=== PATIENT | female | born 1995 | race Caucasian/White ===

== ENCOUNTER 2017-09-24 21:26 | Emergency (ER) | payer MEDICAID ==
[2017-09-24] MEDS: ACETAMINOPHEN 325 MG TAB PO (22:58)
[2017-09-24] MEDS: SOD CHLORIDE 0.9% 1,000 ML IV (22:59)
[2017-09-24 23:20] LABS: ADD MAN DIFF? NO
[2017-09-24 23:23] LABS: WHITE BLOOD COUNT 7.6 10^3/ul (4.8-10.8)
[2017-09-24 23:24] LABS: BASOPHILS % 0.1 % (0.0-2.0); EOSINOPHILS # 0.2 10^3/ul (0.0-0.5); HEMATOCRIT 35.3 % (37.0-47.0); HEMOGLOBIN 12.3 g/dl (12.0-16.0); LYMPHOCYTES # 2.4 10^3/ul (0.8-2.9); LYMPHOCYTES % 31.3 % (15.0-51.0); MEAN CORPUSCULAR HEMOGLOBIN 29.5 pg (29.0-33.0); MEAN CORPUSCULAR HGB CONC 34.8 g/dl (32.0-37.0); MEAN CORPUSCULAR VOLUME 84.7 fl (82.0-101.0); MEAN PLATELET VOLUME 11.1 fl (7.4-10.4); MONOCYTE # 0.7 10^3/ul (0.3-0.9); MONOCYTES % 8.6 % (0.0-11.0); NEUTROPHIL # 4.4 10^3/ul (1.6-7.5); NEUTROPHILS % 57.7 % (39.0-77.0); PLATELET COUNT 245 10^3/UL (140-415); RED BLOOD COUNT 4.17 10^6/ul (4.20-5.40); RED CELL DISTRIBUTION WIDTH 13.1 % (11.5-14.5)
[2017-09-24 23:40] LABS: ADD UMIC YES; UR ASCORBIC ACID NEGATIVE (NEGATIVE); UR BACTERIA FEW /HPF (NONE SEEN); UR BILIRUBIN (Dip) NEGATIVE (NEGATIVE); UR BLOOD (Dip) NEGATIVE (NEGATIVE); UR CALCIUM OXALATE CRYSTAL MANY /HPF (NONE SEEN); UR CLARITY CLOUDY (CLEAR); UR COLOR YELLOW (YELLOW); UR GLUCOSE (Dip) NEGATIVE (NEGATIVE); UR KETONES (Dip) NEGATIVE (NEGATIVE); UR LEUKOCYTE ESTERASE (Dip) 1+ Leu/ul (NEGATIVE); UR NITRITE (Dip) NEGATIVE (NEGATIVE); UR RBC 3 /HPF (0-5); UR SPECIFIC GRAVITY (Dip) 1.016 (1.003-1.030); UR SQUAMOUS EPITHELIAL CELL MODERATE /HPF (FEW); UR TOTAL PROTEIN (Dip) NEGATIVE (NEGATIVE); UR UROBILINOGEN (Dip) NEGATIVE (NEGATIVE); UR WBC 10 /HPF (0-5)
== END 2017-09-25 02:01 | disposition home or self-care (01) ==
LOC: FTE 09-25 02:01
DX: O23.42 Unspecified infection of urinary tract in pregnancy, second trimester (principal); O13.2 Gestational [pregnancy-induced] hypertension without significant proteinuria, second trimester; Z3A.15 15 weeks gestation of pregnancy
CPT/HCPCS: 36415; 76805; 81001; 84702; 85025; 86900; 86901; 99285-25

== ENCOUNTER 2017-11-21 07:20 | Inpatient (IN) | payer MEDICAID ==
[2017-11-21 08:05] LABS: ADD UMIC NO; UR ASCORBIC ACID NEGATIVE (NEGATIVE); UR BILIRUBIN (Dip) NEGATIVE (NEGATIVE); UR BLOOD (Dip) NEGATIVE (NEGATIVE); UR CLARITY SLIGHTLY CLOUDY (CLEAR); UR COLOR YELLOW (YELLOW); UR GLUCOSE (Dip) NEGATIVE (NEGATIVE); UR KETONES (Dip) NEGATIVE (NEGATIVE); UR LEUKOCYTE ESTERASE (Dip) NEGATIVE Leu/ul (NEGATIVE); UR MUCUS FEW /HPF (NONE SEEN); UR NITRITE (Dip) NEGATIVE (NEGATIVE); UR RBC 0 /HPF (0-5); UR SPECIFIC GRAVITY (Dip) 1.016 (1.003-1.030); UR SQUAMOUS EPITHELIAL CELL MODERATE /HPF (FEW); UR TOTAL PROTEIN (Dip) NEGATIVE (NEGATIVE); UR UROBILINOGEN (Dip) NEGATIVE (NEGATIVE); UR WBC 2 /HPF (0-5)
[2017-11-21] MEDS ORDERED: BUTORPHANOL 2 MG INJ IV (09:00)
[2017-11-21] MEDS: LACTATED RINGER'S 1,000 ML IV ×2 (09:47→17:39)
[2017-11-21 10:07] LABS: ADD MAN DIFF? NO
[2017-11-21 10:09] LABS: BASOPHILS % 0.2 % (0.0-2.0); EOSINOPHILS # 0.1 10^3/ul (0.0-0.5); EOSINOPHILS % 1.3 % (0.0-7.0); HEMATOCRIT 35.6 % (37.0-47.0); HEMOGLOBIN 11.9 g/dl (12.0-16.0); LYMPHOCYTES # 1.8 10^3/ul (0.8-2.9); LYMPHOCYTES % 20.2 % (15.0-51.0); MEAN CORPUSCULAR HEMOGLOBIN 29.1 pg (29.0-33.0); MEAN CORPUSCULAR HGB CONC 33.4 g/dl (32.0-37.0); MEAN PLATELET VOLUME 10.8 fl (7.4-10.4); MONOCYTE # 0.5 10^3/ul (0.3-0.9); MONOCYTES % 5.8 % (0.0-11.0); NEUTROPHIL # 6.3 10^3/ul (1.6-7.5); PLATELET COUNT 274 10^3/UL (140-415); RED BLOOD COUNT 4.09 10^6/ul (4.20-5.40); RED CELL DISTRIBUTION WIDTH 13.2 % (11.5-14.5)
[2017-11-21 10:09] LABS: WHITE BLOOD COUNT 8.7 10^3/ul (4.8-10.8)
[2017-11-21 10:38] LABS: ALANINE AMINOTRANSFERASE 17 IU/L (13-69); ALBUMIN 3.6 g/dl (3.3-4.9); ALKALINE PHOSPHATASE 84 IU/L (42-121); AMYLASE 71 U/L (11-123); ANION GAP 14 (8-16); ASPARTATE AMINO TRANSFERASE 23 IU/L (15-46); BILIRUBIN,INDIRECT 0.3 mg/dl (0-1.1); BILIRUBIN,TOTAL 0.3 mg/dl (0.2-1.3); BLOOD UREA NITROGEN 3 mg/dl (7-20); CALCIUM 8.7 mg/dl (8.4-10.2); CARBON DIOXIDE 20 mmol/L (21-31); CHLORIDE 112 mmol/L (97-110); CREATININE 0.37 mg/dl (0.44-1.00); GLUCOSE 78 mg/dl (70-220); LIPASE 87 U/L (23-300); POTASSIUM 3.9 mmol/L (3.5-5.1); SODIUM 142 mmol/L (135-144); TOTAL PROTEIN 7.6 g/dl (6.1-8.1)
[2017-11-22] MEDS: LACTATED RINGER'S 1,000 ML IV ×3 (03:04→11:28)
[2017-11-22 08:19] LABS: ADD MAN DIFF? NO
[2017-11-22 08:23] LABS: WHITE BLOOD COUNT 7.3 10^3/ul (4.8-10.8)
[2017-11-22 08:23] LABS: BASOPHILS % 0.1 % (0.0-2.0); EOSINOPHILS # 0.2 10^3/ul (0.0-0.5); EOSINOPHILS % 2.1 % (0.0-7.0); HEMATOCRIT 32.6 % (37.0-47.0); HEMOGLOBIN 10.9 g/dl (12.0-16.0); LYMPHOCYTES # 2.3 10^3/ul (0.8-2.9); LYMPHOCYTES % 31.6 % (15.0-51.0); MEAN CORPUSCULAR HEMOGLOBIN 29.1 pg (29.0-33.0); MEAN CORPUSCULAR HGB CONC 33.4 g/dl (32.0-37.0); MEAN CORPUSCULAR VOLUME 86.9 fl (82.0-101.0); MEAN PLATELET VOLUME 10.8 fl (7.4-10.4); MONOCYTE # 0.5 10^3/ul (0.3-0.9); MONOCYTES % 6.7 % (0.0-11.0); NEUTROPHIL # 4.3 10^3/ul (1.6-7.5); NEUTROPHILS % 59.2 % (39.0-77.0); PLATELET COUNT 246 10^3/UL (140-415); RED BLOOD COUNT 3.75 10^6/ul (4.20-5.40); RED CELL DISTRIBUTION WIDTH 13.4 % (11.5-14.5)
[2017-11-22 08:41] LABS: ALANINE AMINOTRANSFERASE 16 IU/L (13-69); ALBUMIN 3.2 g/dl (3.3-4.9); ALBUMIN/GLOBULIN RATIO 0.94; ALKALINE PHOSPHATASE 63 IU/L (42-121); ANION GAP 13 (8-16); ASPARTATE AMINO TRANSFERASE 13 IU/L (15-46); BILIRUBIN,INDIRECT 0.3 mg/dl (0-1.1); BILIRUBIN,TOTAL 0.3 mg/dl (0.2-1.3); BLOOD UREA NITROGEN 2 mg/dl (7-20); CALCIUM 8.5 mg/dl (8.4-10.2); CARBON DIOXIDE 21 mmol/L (21-31); CHLORIDE 110 mmol/L (97-110); CREATININE 0.38 mg/dl (0.44-1.00); GLUCOSE 73 mg/dl (70-220); POTASSIUM 3.4 mmol/L (3.5-5.1); SODIUM 141 mmol/L (135-144); TOTAL PROTEIN 6.6 g/dl (6.1-8.1)
== END 2017-11-22 23:00 | disposition home or self-care (01) | DRG 781 ==
LOC: OBT 07:20 → L-D 07:20 → OBT 08:35 → L-D 08:35 → PP1 20:00
DX: O99.612 Diseases of the digestive system complicating pregnancy, second trimester (principal); Z3A.24 24 weeks gestation of pregnancy
CPT/HCPCS: 74181; 76705; 76815; 76817; 80053; 81001; 81003; 82150; 82731; 83690; 85025

== ENCOUNTER 2018-02-06 17:28 | Inpatient (IN) | payer MEDICAID ==
[2018-02-06 18:25] LABS: ADD UMIC YES; UR ASCORBIC ACID NEGATIVE (NEGATIVE); UR BACTERIA FEW /HPF (NONE SEEN); UR BILIRUBIN (Dip) NEGATIVE (NEGATIVE); UR BLOOD (Dip) NEGATIVE (NEGATIVE); UR CLARITY SLIGHTLY CLOUDY (CLEAR); UR COLOR YELLOW (YELLOW); UR GLUCOSE (Dip) NEGATIVE (NEGATIVE); UR KETONES (Dip) NEGATIVE (NEGATIVE); UR LEUKOCYTE ESTERASE (Dip) 2+ Leu/ul (NEGATIVE); UR MUCUS FEW /HPF (NONE SEEN); UR NITRITE (Dip) NEGATIVE (NEGATIVE); UR RBC 5 /HPF (0-5); UR SPECIFIC GRAVITY (Dip) 1.017 (1.003-1.030); UR SQUAMOUS EPITHELIAL CELL MODERATE /HPF (FEW); UR TOTAL PROTEIN (Dip) 2+ mg/dl (NEGATIVE); UR UROBILINOGEN (Dip) NEGATIVE (NEGATIVE); UR WBC 6 /HPF (0-5)
[2018-02-06 18:33] LABS: ADD MAN DIFF? NO
[2018-02-06 18:35] LABS: BASOPHILS % 0.1 % (0.0-2.0); EOSINOPHILS # 0.1 10^3/ul (0.0-0.5); EOSINOPHILS % 1.2 % (0.0-7.0); HEMATOCRIT 28.4 % (37.0-47.0); HEMOGLOBIN 9.3 g/dl (12.0-16.0); LYMPHOCYTES % 29.6 % (15.0-51.0); MEAN CORPUSCULAR HEMOGLOBIN 26.6 pg (29.0-33.0); MEAN CORPUSCULAR HGB CONC 32.7 g/dl (32.0-37.0); MEAN CORPUSCULAR VOLUME 81.4 fl (82.0-101.0); MEAN PLATELET VOLUME 11.9 fl (7.4-10.4); MONOCYTE # 0.6 10^3/ul (0.3-0.9); MONOCYTES % 9.3 % (0.0-11.0); NEUTROPHILS % 59.5 % (39.0-77.0); PLATELET COUNT 219 10^3/UL (140-415); RED BLOOD COUNT 3.49 10^6/ul (4.20-5.40); RED CELL DISTRIBUTION WIDTH 13.8 % (11.5-14.5)
[2018-02-06 18:35] LABS: WHITE BLOOD COUNT 6.7 10^3/ul (4.8-10.8)
[2018-02-06 19:00] LABS: ALANINE AMINOTRANSFERASE 18 IU/L (13-69); ALBUMIN 2.8 g/dl (3.3-4.9); ALBUMIN/GLOBULIN RATIO 0.87; ALKALINE PHOSPHATASE 131 IU/L (42-121); ANION GAP 12 (8-16); ASPARTATE AMINO TRANSFERASE 19 IU/L (15-46); BILIRUBIN,INDIRECT 0.3 mg/dl (0-1.1); BILIRUBIN,TOTAL 0.3 mg/dl (0.2-1.3); BLOOD UREA NITROGEN 8 mg/dl (7-20); CALCIUM 8.2 mg/dl (8.4-10.2); CARBON DIOXIDE 20 mmol/L (21-31); CHLORIDE 112 mmol/L (97-110); CREATININE 0.44 mg/dl (0.44-1.00); GLUCOSE 83 mg/dl (70-220); POTASSIUM 3.7 mmol/L (3.5-5.1); SODIUM 140 mmol/L (135-144); URIC ACID 3.9 mg/dl (3.1-7.9)
[2018-02-06 19:25] LABS: INR 0.91; PROTIME 12.3 Sec (11.9-14.9)
[2018-02-06 19:26] LABS: PARTIAL THROMBOPLASTIN TIME 27.3 Sec (25.0-35.0)
[2018-02-06] MEDS: LABETALOL 100 MG TAB PO (22:49)
[2018-02-06] MEDS: LACTATED RINGER'S 1,000 ML IV ×2 (22:54→23:19)
[2018-02-07] MEDS: MAGNESIUM SULFATE 4 GM/100 ML 100 ML IVPB (04:11)
[2018-02-07] MEDS: MAGNESIUM SULFATE 20 GM/500 ML 500 ML IV ×2 (04:38→14:57)
[2018-02-07] MEDS: ACETAMINOPHEN 325 MG TAB PO ×3 (05:02→18:39)
[2018-02-07] MEDS: LABETALOL 200 MG TAB PO ×2 (05:28→22:04)
[2018-02-07] MEDS: LACTATED RINGER'S 1,000 ML IV ×2 (08:17→21:56)
[2018-02-07] MEDS: BETAMET NA PHOS/AC(6 MG/ML) 5ML INJ IM ×2 (11:30→23:31)
[2018-02-07] MEDS: DOCUSATE SODIUM 100 MG CAP PO (11:30)
[2018-02-07] MEDS: PRENATAL VITAMIN PO (11:31)
[2018-02-07 11:46] LABS: MAGNESIUM 4.1 mg/dl (1.7-2.5)
[2018-02-07] MEDS: AL HYDROX/MG HYDROX/SIMETH 30 ML CUP PO (15:04)
[2018-02-07 17:04] LABS: MAGNESIUM 4.3 mg/dl (1.7-2.5)
[2018-02-07 23:17] LABS: MAGNESIUM 4.8 mg/dl (1.7-2.5)
[2018-02-08] MEDS: MAGNESIUM SULFATE 20 GM/500 ML 500 ML IV ×3 (01:10→20:41)
[2018-02-08 01:22] LABS: COLLECTION PERIOD 24 hrs
[2018-02-08 02:01] LABS: SCRET 0.44 mg/dl (0.44-1.00)
[2018-02-08 02:02] LABS: CREATININE,URINE RANDOM 27.49 mg/dl (20-320)
[2018-02-08 02:03] LABS: COLLECTION PERIOD 24 hrs; CREATININE CLEARANCE 199.6 mls/min (84.0-162.0); VOLUME 4600 ml/24hrs; VOLUME 4600 mls
[2018-02-08] MEDS: ACETAMINOPHEN 325 MG TAB PO ×2 (03:06→19:59)
[2018-02-08] MEDS: DEXTROSE 5%-LR 1,000 ML IV ×3 (04:03→22:42)
[2018-02-08] MEDS ORDERED: CARBOPROST 250 MCG INJ IM (04:30)
[2018-02-08] MEDS ORDERED: HYDROCODONE/APAP (5/325) TAB PO (04:30)
[2018-02-08] MEDS ORDERED: METHYLERGONOVINE 0.2 MG INJ IM (04:30)
[2018-02-08] MEDS ORDERED: SENNA/DOCUSATE NA (8.6MG/50MG) TAB PO (04:30)
[2018-02-08] MEDS ORDERED: ONDANSETRON 4 MG INJ IV (04:30)
[2018-02-08] MEDS ORDERED: OXYTOCIN 30 UNITS/LR 500 ML IV (04:30)
[2018-02-08] MEDS ORDERED: DIPHENHYDRAMINE 50 MG INJ IV (04:30)
[2018-02-08] MEDS ORDERED: ZOLPIDEM 5 MG TAB PO (04:30)
[2018-02-08] MEDS ORDERED: DIBUCAINE 1% 30 GM OINT PR (04:30)
[2018-02-08] MEDS ORDERED: LANOLIN 7 GM TUBE TOP (04:30)
[2018-02-08] MEDS ORDERED: BENZOCAINE 20% 56 ML SPRAY TOP (04:30)
[2018-02-08] MEDS ORDERED: MAGNESIUM HYDROXIDE 30ML CUP PO (04:30)
[2018-02-08] MEDS ORDERED: MISOPROSTOL 200 MCG TAB PR (04:30)
[2018-02-08] MEDS ORDERED: WITCH HAZEL/GLYCERIN PAD PR (04:30)
[2018-02-08] MEDS: IBUPROFEN 800 MG TAB PO ×3 (06:00→22:00)
[2018-02-08] MEDS: LABETALOL 200 MG TAB PO ×2 (08:21→20:43)
[2018-02-08] MEDS: MISOPROSTOL 25 MCG CAPSULE PO ×4 (08:22→20:42)
[2018-02-08] MEDS: PRENATAL VITAMIN PO (09:00)
[2018-02-08] MEDS: AMPICILLIN 2 GM/NS (PMX) 100 ML IV (10:02)
[2018-02-08 10:52] LABS: MAGNESIUM 5.4 mg/dl (1.7-2.5)
[2018-02-08] MEDS: DOCUSATE SODIUM 100 MG CAP PO (11:29)
[2018-02-08] MEDS: LACTATED RINGER'S 1,000 ML IV* ×2 (12:28→23:34)
[2018-02-08] MEDS: AMPICILLIN 1 GM/NS (PMX) 50 ML IV ×3 (13:59→22:43)
[2018-02-08 16:50] LABS: CREATININE 0.45 mg/dl (0.44-1.00)
[2018-02-08 16:52] LABS: MAGNESIUM 5.5 mg/dl (1.7-2.5)
[2018-02-08] MEDS: LACTATED RINGER'S 1,000 ML IV (23:34)
[2018-02-09 00:44] LABS: MAGNESIUM 5.4 mg/dl (1.7-2.5)
[2018-02-09] MEDS: FUROSEMIDE 20 MG INJ IV ×4 (01:40→06:12)
[2018-02-09] MEDS ORDERED: FENTAnyl 2MCG/ML-ROPIV 0.2% 100 ML (02:14)
[2018-02-09] MEDS ORDERED: LACTATED RINGER'S 1,000 ML IV (02:17)
[2018-02-09] MEDS ORDERED: CARBOPROST 250 MCG INJ IM ×2 (02:30→05:00)
[2018-02-09] MEDS ORDERED: DIPHENHYDRAMINE 50 MG INJ IV ×2 (02:30→05:00)
[2018-02-09] MEDS ORDERED: ONDANSETRON 4 MG INJ IV ×2 (02:30→05:00)
[2018-02-09] MEDS ORDERED: METHYLERGONOVINE 0.2 MG INJ IM ×2 (02:30→05:00)
[2018-02-09] MEDS ORDERED: OXYTOCIN 30 UNITS/LR 500 ML IV ×3 (02:30→05:00)
[2018-02-09] MEDS ORDERED: MISOPROSTOL 200 MCG TAB PR ×2 (02:30→05:00)
[2018-02-09] MEDS ORDERED: NALOXONE (0.4 MG/ML) INJ IV ×2 (02:30→05:00)
[2018-02-09 02:50] LABS: ADD UMIC YES; UR ASCORBIC ACID NEGATIVE (NEGATIVE); UR BILIRUBIN (Dip) NEGATIVE (NEGATIVE); UR BLOOD (Dip) NEGATIVE (NEGATIVE); UR CLARITY CLEAR (CLEAR); UR COLOR YELLOW (YELLOW); UR GLUCOSE (Dip) NEGATIVE (NEGATIVE); UR KETONES (Dip) 1+ mg/dL (NEGATIVE); UR LEUKOCYTE ESTERASE (Dip) NEGATIVE Leu/ul (NEGATIVE); UR NITRITE (Dip) NEGATIVE (NEGATIVE); UR RBC 0 /HPF (0-5); UR SPECIFIC GRAVITY (Dip) 1.016 (1.003-1.030); UR TOTAL PROTEIN (Dip) 2+ mg/dl (NEGATIVE); UR UROBILINOGEN (Dip) NEGATIVE (NEGATIVE); UR WBC 1 /HPF (0-5)
[2018-02-09] MEDS ORDERED: LIDOCAINE 1.5%/EPI MPF (SDV) 30 ML VIAL (02:57)
[2018-02-09] MEDS ORDERED: FENTAnyl 50 MCG/ML VIAL (02:57)
[2018-02-09] MEDS ORDERED: PHENYLephrine (100 MCG/ML) 5ML SYG (03:22)
[2018-02-09] MEDS ORDERED: MIDAZOLAM 1 MG/ML 2 ML INJ (03:37)
[2018-02-09] MEDS ORDERED: morphine SULFATE/PF (10 MG/10 ML) INJ (03:59)
[2018-02-09] MEDS: CEFAZOLIN 2 GM/50 ML (PMX) 50 ML IVPB (04:14)
[2018-02-09] MEDS ORDERED: DEXTROSE 5%-LR 1,000 ML IV (04:53)
[2018-02-09] MEDS ORDERED: HYDROmorphONE 0.5 MG/0.5 ML SYG IV ×2 (05:00)
[2018-02-09] MEDS ORDERED: METHYLERGONOVINE 0.2 MG TAB PO (05:00)
[2018-02-09] MEDS ORDERED: LANOLIN 7 GM TUBE TOP (05:00)
[2018-02-09] MEDS ORDERED: ZOLPIDEM 5 MG TAB PO ×2 (05:00)
[2018-02-09] MEDS: LABETALOL HCL 20MG INJ IV ×2 (05:15→05:33)
[2018-02-09] MEDS: KETOROLAC 30 MG INJ IV ×2 (05:39→12:46)
[2018-02-09] MEDS: FENTAnyl 2MCG/ML-ROPIV 0.2% 100 ML BAG EPI (05:41)
[2018-02-09] MEDS ORDERED: IBUPROFEN 800 MG TAB PO (06:00)
[2018-02-09] MEDS ORDERED: LABETALOL HCL 20MG INJ IV (06:30)
[2018-02-09 06:44] LABS: ADD MAN DIFF? NO
[2018-02-09] MEDS: PHENOBARBITAL 32.4 MG TAB PO ×2 (06:49→18:14)
[2018-02-09 06:59] LABS: BASOPHILS % 0.1 % (0.0-2.0); HEMATOCRIT 27.5 % (37.0-47.0); HEMOGLOBIN 8.9 g/dl (12.0-16.0); LYMPHOCYTES # 1.9 10^3/ul (0.8-2.9); LYMPHOCYTES % 15.2 % (15.0-51.0); MEAN CORPUSCULAR HEMOGLOBIN 26.7 pg (29.0-33.0); MEAN CORPUSCULAR HGB CONC 32.4 g/dl (32.0-37.0); MEAN CORPUSCULAR VOLUME 82.6 fl (82.0-101.0); MONOCYTE # 0.8 10^3/ul (0.3-0.9); NEUTROPHIL # 9.9 10^3/ul (1.6-7.5); NEUTROPHILS % 77.9 % (39.0-77.0); NUCLEATED RED BLOOD CELLS% 0.2 /100WBC (0.0-0.0); PLATELET COUNT 239 10^3/UL (140-415); RED BLOOD COUNT 3.33 10^6/ul (4.20-5.40); RED CELL DISTRIBUTION WIDTH 14.6 % (11.5-14.5)
[2018-02-09 06:59] LABS: WHITE BLOOD COUNT 12.7 10^3/ul (4.8-10.8)
[2018-02-09] MEDS ORDERED: DEXAMETHASONE 4 MG/ML 1 ML INJ (07:00)
[2018-02-09] MEDS ORDERED: ONDANSETRON 4 MG INJ (07:00)
[2018-02-09 07:05] LABS: INR 0.91; PROTIME 12.3 Sec (11.9-14.9)
[2018-02-09 07:06] LABS: PARTIAL THROMBOPLASTIN TIME 24.1 Sec (25.0-35.0)
[2018-02-09 07:14] LABS: MAGNESIUM 3.4 mg/dl (1.7-2.5)
[2018-02-09 07:15] LABS: ALANINE AMINOTRANSFERASE 18 IU/L (13-69); ALBUMIN 2.6 g/dl (3.3-4.9); ALBUMIN/GLOBULIN RATIO 0.92; ALKALINE PHOSPHATASE 112 IU/L (42-121); ANION GAP 7 (8-16); ASPARTATE AMINO TRANSFERASE 31 IU/L (15-46); BILIRUBIN,INDIRECT 0.2 mg/dl (0-1.1); BILIRUBIN,TOTAL 0.2 mg/dl (0.2-1.3); BLOOD UREA NITROGEN 11 mg/dl (7-20); CALCIUM 6.8 mg/dl (8.4-10.2); CARBON DIOXIDE 25 mmol/L (21-31); CHLORIDE 112 mmol/L (97-110); CREATININE 0.55 mg/dl (0.44-1.00); GLUCOSE 86 mg/dl (70-220); POTASSIUM 3.6 mmol/L (3.5-5.1); SODIUM 140 mmol/L (135-144); TOTAL PROTEIN 5.4 g/dl (6.1-8.1); URIC ACID 5.4 mg/dl (3.1-7.9)
[2018-02-09] MEDS: OXYTOCIN 30 UNITS/LR 500 ML IV (07:39)
[2018-02-09] MEDS: SENNA/DOCUSATE NA (8.6MG/50MG) TAB PO ×2 (08:52→21:56)
[2018-02-09] MEDS: LABETALOL 200 MG TAB PO ×2 (08:52→21:21)
[2018-02-09 12:49] LABS: MAGNESIUM 3.2 mg/dl (1.7-2.5)
[2018-02-09] MEDS: LACTATED RINGER'S 1,000 ML IV (18:00)
[2018-02-09 22:49] LABS: RAPID PLASMA REAGIN NONREACTIVE (NR)
[2018-02-10] MEDS: PHENOBARBITAL 32.4 MG TAB PO (05:43)
[2018-02-10] MEDS: IBUPROFEN 800 MG TAB PO ×3 (05:43→22:07)
[2018-02-10] MEDS: HYDROCODONE/APAP (5/325) TAB PO ×4 (05:44→22:00)
[2018-02-10] MEDS ORDERED: DIPHTH/TET/ACEL PERTUSS (ADULT) 0.5 ML VIAL IM* (09:00)
[2018-02-10] MEDS ORDERED: MEASLES,MUMPS,RUBELLA VACCINE INJ SC* (09:00)
[2018-02-10 09:21] LABS: ADD MAN DIFF? NO
[2018-02-10] MEDS: LABETALOL 200 MG TAB PO ×2 (09:22→20:53)
[2018-02-10] MEDS: SENNA/DOCUSATE NA (8.6MG/50MG) TAB PO ×2 (09:23→20:53)
[2018-02-10 09:24] LABS: BASOPHILS % 0.2 % (0.0-2.0); EOSINOPHILS % 0.1 % (0.0-7.0); HEMATOCRIT 25.2 % (37.0-47.0); LYMPHOCYTES # 2.7 10^3/ul (0.8-2.9); LYMPHOCYTES % 28.1 % (15.0-51.0); MEAN CORPUSCULAR HEMOGLOBIN 26.3 pg (29.0-33.0); MEAN CORPUSCULAR HGB CONC 31.7 g/dl (32.0-37.0); MEAN CORPUSCULAR VOLUME 82.9 fl (82.0-101.0); MEAN PLATELET VOLUME 12.3 fl (7.4-10.4); MONOCYTE # 0.9 10^3/ul (0.3-0.9); MONOCYTES % 9.9 % (0.0-11.0); NEUTROPHIL # 5.8 10^3/ul (1.6-7.5); NEUTROPHILS % 61.2 % (39.0-77.0); PLATELET COUNT 206 10^3/UL (140-415); RED BLOOD COUNT 3.04 10^6/ul (4.20-5.40); RED CELL DISTRIBUTION WIDTH 14.7 % (11.5-14.5)
[2018-02-10 09:24] LABS: WHITE BLOOD COUNT 9.5 10^3/ul (4.8-10.8)
[2018-02-10] MEDS: LACTATED RINGER'S 1,000 ML IV ×2 (13:19→13:39)
[2018-02-11] MEDS: IBUPROFEN 800 MG TAB PO ×3 (05:31→21:59)
[2018-02-11] MEDS: HYDROCODONE/APAP (5/325) TAB PO ×3 (05:31→22:00)
[2018-02-11] MEDS: SENNA/DOCUSATE NA (8.6MG/50MG) TAB PO ×2 (09:25→20:37)
[2018-02-11] MEDS: LABETALOL 200 MG TAB PO ×2 (09:26→20:37)
[2018-02-11] MEDS: LABETALOL HCL 20MG INJ IV ×2 (20:42→20:56)
[2018-02-11] MEDS: LACTATED RINGER'S 1,000 ML IV (21:59)
[2018-02-11] MEDS ORDERED: MAGNESIUM SULFATE 2 GM/50 ML 50 ML IVPB (22:30)
[2018-02-11 22:54] LABS: ADD MAN DIFF? NO
[2018-02-11 23:01] LABS: WHITE BLOOD COUNT 8.9 10^3/ul (4.8-10.8)
[2018-02-11 23:01] LABS: BASOPHILS % 0.2 % (0.0-2.0); EOSINOPHILS # 0.1 10^3/ul (0.0-0.5); EOSINOPHILS % 1.2 % (0.0-7.0); HEMATOCRIT 28.8 % (37.0-47.0); HEMOGLOBIN 9.2 g/dl (12.0-16.0); LYMPHOCYTES # 2.5 10^3/ul (0.8-2.9); LYMPHOCYTES % 27.7 % (15.0-51.0); MEAN CORPUSCULAR HEMOGLOBIN 26.3 pg (29.0-33.0); MEAN CORPUSCULAR HGB CONC 31.9 g/dl (32.0-37.0); MEAN CORPUSCULAR VOLUME 82.3 fl (82.0-101.0); MEAN PLATELET VOLUME 11.6 fl (7.4-10.4); MONOCYTE # 0.5 10^3/ul (0.3-0.9); MONOCYTES % 5.9 % (0.0-11.0); NEUTROPHIL # 5.7 10^3/ul (1.6-7.5); NEUTROPHILS % 64.3 % (39.0-77.0); PLATELET COUNT 252 10^3/UL (140-415); RED CELL DISTRIBUTION WIDTH 14.6 % (11.5-14.5)
[2018-02-11 23:27] LABS: ALANINE AMINOTRANSFERASE 26 IU/L (13-69); ALBUMIN 3.1 g/dl (3.3-4.9); ALKALINE PHOSPHATASE 108 IU/L (42-121); ANION GAP 10 (8-16); ASPARTATE AMINO TRANSFERASE 31 IU/L (15-46); BILIRUBIN,INDIRECT 0.2 mg/dl (0-1.1); BILIRUBIN,TOTAL 0.2 mg/dl (0.2-1.3); BLOOD UREA NITROGEN 6 mg/dl (7-20); CALCIUM 8.5 mg/dl (8.4-10.2); CARBON DIOXIDE 25 mmol/L (21-31); CHLORIDE 111 mmol/L (97-110); CREATININE 0.42 mg/dl (0.44-1.00); GLUCOSE 81 mg/dl (70-220); POTASSIUM 3.7 mmol/L (3.5-5.1); SODIUM 142 mmol/L (135-144); TOTAL PROTEIN 6.2 g/dl (6.1-8.1); URIC ACID 4.5 mg/dl (3.1-7.9)
[2018-02-12] MEDS: LABETALOL HCL 20MG INJ IV (05:21)
[2018-02-12] MEDS: MAGNESIUM SULFATE 4 GM/100 ML 100 ML IVPB (05:39)
[2018-02-12] MEDS: LABETALOL 200 MG TAB PO ×2 (05:49→13:40)
[2018-02-12] MEDS: IBUPROFEN 800 MG TAB PO ×2 (05:49→13:40)
[2018-02-12] MEDS: ZOLPIDEM 5 MG TAB PO (05:54)
[2018-02-12] MEDS: HYDROCODONE/APAP (5/325) TAB PO ×2 (06:00→13:40)
[2018-02-12] MEDS: MAGNESIUM SULFATE 20 GM/500 ML 500 ML IV ×2 (06:09→15:18)
[2018-02-12] MEDS ORDERED: LABETALOL 200 MG TAB PO (09:00)
[2018-02-12] MEDS: MEASLES,MUMPS,RUBELLA VACCINE INJ SC* (09:00)
[2018-02-12] MEDS: SENNA/DOCUSATE NA (8.6MG/50MG) TAB PO (09:00)
[2018-02-12] MEDS: DIPHTH/TET/ACEL PERTUSS (ADULT) 0.5 ML VIAL IM* (10:00)
== END 2018-02-12 16:58 | disposition home or self-care (01) | DRG 766 ==
LOC: OBT 17:28 → L-D 02-07 02:53 → OBT 20:35 → PP1 02-09 14:22 → L-D 20:35
PROC: 10D00Z1 Extraction of Products of Conception, Low, Open Approach (ICD-10-PCS; principal; 2018-02-09 06:00)
PROC: 3E033VJ Introduction of Other Hormone into Peripheral Vein, Percutaneous Approach (ICD-10-PCS; 2018-02-09 06:00)
DX: O60.14X0 Preterm labor third trimester with preterm delivery third trimester, not applicable or unspecified (principal); O11.4 Pre-existing hypertension with pre-eclampsia, complicating childbirth; Z3A.35 35 weeks gestation of pregnancy; Z37.0 Single live birth
CPT/HCPCS: 62319; 71045; 76815; 76818; 80053; 81001; 82565; 82575; 83735; 84156; 84560; 85025; 85384; 85610; 85730; 86592; 86850; 86900; 86901; 86920; 87086; 99464

== ENCOUNTER 2018-04-27 21:19 | Inpatient (IN) | payer MEDICAID ==
[2018-04-27 22:54] LABS: ADD MAN DIFF? NO
[2018-04-27 22:55] LABS: ADD UMIC YES; UR ASCORBIC ACID NEGATIVE (NEGATIVE); UR BACTERIA FEW /HPF (NONE SEEN); UR BILIRUBIN (Dip) NEGATIVE (NEGATIVE); UR BLOOD (Dip) NEGATIVE (NEGATIVE); UR CLARITY CLOUDY (CLEAR); UR COLOR AMBER (YELLOW); UR GLUCOSE (Dip) NEGATIVE (NEGATIVE); UR KETONES (Dip) NEGATIVE (NEGATIVE); UR LEUKOCYTE ESTERASE (Dip) TRACE Leu/ul (NEGATIVE); UR MUCUS FEW /HPF (NONE SEEN); UR NITRITE (Dip) NEGATIVE (NEGATIVE); UR RBC 3 /HPF (0-5); UR SPECIFIC GRAVITY (Dip) 1.013 (1.003-1.030); UR SQUAMOUS EPITHELIAL CELL MANY /HPF (FEW); UR TOTAL PROTEIN (Dip) 1+ mg/dl (NEGATIVE); UR UROBILINOGEN (Dip) 1+ mg/dL (NEGATIVE); UR WBC 11 /HPF (0-5)
[2018-04-27 22:56] LABS: BASOPHILS % 0.1 % (0.0-2.0); EOSINOPHILS % 0.1 % (0.0-7.0); HEMATOCRIT 42.8 % (37.0-47.0); HEMOGLOBIN 13.5 g/dl (12.0-16.0); LYMPHOCYTES # 1.1 10^3/ul (0.8-2.9); LYMPHOCYTES % 8.1 % (15.0-51.0); MEAN CORPUSCULAR HGB CONC 31.5 g/dl (32.0-37.0); MEAN CORPUSCULAR VOLUME 79.4 fl (82.0-101.0); MEAN PLATELET VOLUME 9.8 fl (7.4-10.4); MONOCYTE # 0.7 10^3/ul (0.3-0.9); MONOCYTES % 4.7 % (0.0-11.0); NEUTROPHIL # 12.2 10^3/ul (1.6-7.5); NEUTROPHILS % 86.6 % (39.0-77.0); PLATELET COUNT 381 10^3/UL (140-415); RED BLOOD COUNT 5.39 10^6/ul (4.20-5.40)
[2018-04-27] MEDS: SOD CHLORIDE 0.9% 1,000 ML IV (22:57)
[2018-04-27] MEDS: ONDANSETRON 4 MG INJ IV (23:00)
[2018-04-27] MEDS: FAMOTIDINE 20 MG INJ IV (23:00)
[2018-04-27] MEDS: morphine 4 MG/ML VIAL IV (23:00)
[2018-04-27 23:12] LABS: ALANINE AMINOTRANSFERASE 430 IU/L (13-69); ALBUMIN 4.5 g/dl (3.3-4.9); ALBUMIN/GLOBULIN RATIO 1.02; ALKALINE PHOSPHATASE 193 IU/L (42-121); ANION GAP 13 (5-13); ASPARTATE AMINO TRANSFERASE 617 IU/L (15-46); BILIRUBIN,INDIRECT 1.2 mg/dl (0-1.1); BILIRUBIN,TOTAL 1.2 mg/dl (0.2-1.3); BLOOD UREA NITROGEN 8 mg/dl (7-20); CALCIUM 9.6 mg/dl (8.4-10.2); CARBON DIOXIDE 26 mmol/L (21-31); CHLORIDE 104 mmol/L (97-110); CREATININE 0.46 mg/dl (0.44-1.00); Estimated GFR > 60 mL/min (>60); GLUCOSE 115 mg/dl (70-220); POTASSIUM 4.4 mmol/L (3.5-5.1); SODIUM 143 mmol/L (135-144); TOTAL PROTEIN 8.9 g/dl (6.1-8.1)
[2018-04-28] LABS: LIPASE 25589 U/L (23-300)
[2018-04-28] MEDS: PIPER-TAZO 3.375 GM IV (PMX) 100 ML IVPB (00:23)
[2018-04-28] MEDS ORDERED: NACL 0.9% 3 ML SYG IV (01:00)
[2018-04-28] MEDS ORDERED: BISACODYL (EC) 5 MG TAB PO (01:00)
[2018-04-28] MEDS ORDERED: DOCUSATE SODIUM 100 MG CAP PO (01:00)
[2018-04-28] MEDS ORDERED: ACETAMINOPHEN 325 MG TAB PO (01:00)
[2018-04-28] MEDS: HYDROmorphONE 0.5 MG/0.5 ML SYG IV (01:12)
[2018-04-28] MEDS: SOD CHLORIDE 0.9% 1,000 ML IV ×6 (04:02→20:52)
[2018-04-28] MEDS: HYDROmorphONE 1 MG/ML SYG IV ×2 (05:12→08:16)
[2018-04-28 06:31] LABS: ADD MAN DIFF? NO
[2018-04-28 06:36] LABS: BASOPHILS % 0.1 % (0.0-2.0); EOSINOPHILS % 0.3 % (0.0-7.0); HEMATOCRIT 37.3 % (37.0-47.0); HEMOGLOBIN 11.6 g/dl (12.0-16.0); LYMPHOCYTES # 1.6 10^3/ul (0.8-2.9); LYMPHOCYTES % 18.6 % (15.0-51.0); MEAN CORPUSCULAR HGB CONC 31.1 g/dl (32.0-37.0); MEAN CORPUSCULAR VOLUME 80.4 fl (82.0-101.0); MEAN PLATELET VOLUME 10.6 fl (7.4-10.4); MONOCYTE # 0.5 10^3/ul (0.3-0.9); MONOCYTES % 5.3 % (0.0-11.0); NEUTROPHIL # 6.5 10^3/ul (1.6-7.5); NEUTROPHILS % 75.4 % (39.0-77.0); PLATELET COUNT 332 10^3/UL (140-415); RED BLOOD COUNT 4.64 10^6/ul (4.20-5.40); RED CELL DISTRIBUTION WIDTH 16.5 % (11.5-14.5)
[2018-04-28 06:36] LABS: WHITE BLOOD COUNT 8.7 10^3/ul (4.8-10.8)
[2018-04-28 07:11] LABS: IRON 139 ug/dl (35-150)
[2018-04-28 07:20] LABS: % IRON SATURATION 32 % SAT (22-52); TOTAL IRON BINDING CAPACITY 438 ug/dl (241-421)
[2018-04-28 07:23] LABS: ALANINE AMINOTRANSFERASE 330 IU/L (13-69); ALBUMIN 3.6 g/dl (3.3-4.9); ALBUMIN/GLOBULIN RATIO 1.09; ALKALINE PHOSPHATASE 151 IU/L (42-121); ANION GAP 12 (5-13); ASPARTATE AMINO TRANSFERASE 368 IU/L (15-46); BILIRUBIN,INDIRECT 1.5 mg/dl (0-1.1); BILIRUBIN,TOTAL 1.8 mg/dl (0.2-1.3); BLOOD UREA NITROGEN 8 mg/dl (7-20); CALCIUM 8.5 mg/dl (8.4-10.2); CARBON DIOXIDE 23 mmol/L (21-31); CHLORIDE 108 mmol/L (97-110); CREATININE 0.41 mg/dl (0.44-1.00); Estimated GFR > 60 mL/min (>60); GLUCOSE 117 mg/dl (70-220); POTASSIUM 3.9 mmol/L (3.5-5.1); SODIUM 143 mmol/L (135-144); TOTAL PROTEIN 6.9 g/dl (6.1-8.1)
[2018-04-28 07:45] LABS: FERRITIN 20.6 ng/ml (6.2-137.0)
[2018-04-28 08:13] LABS: THYROID STIMULATING HORMONE 0.457 MIU/L (0.465-4.680)
[2018-04-28 10:01] LABS: LIPASE 25117 U/L (23-300)
[2018-04-28 10:36] LABS: MAGNESIUM 1.8 mg/dl (1.7-2.5)
[2018-04-28 10:36] LABS: CHOL/HDL RATIO 6.5 RATIO; CHOLESTEROL 184 mg/dl (100-200); HDL CHOLESTEROL 28 mg/dl (33-83); LDL CHOLESTEROL,CALCULATED 118 mg/dl; TRIGLYCERIDES 190 mg/dl (0-149)
[2018-04-28 18:50] LABS: LIPASE 11906 U/L (23-300)
[2018-04-29] MEDS: SOD CHLORIDE 0.9% 1,000 ML IV ×4 (00:55→18:09)
[2018-04-29 06:15] LABS: ADD MAN DIFF? NO
[2018-04-29 06:19] LABS: BASOPHILS % 0.2 % (0.0-2.0); EOSINOPHILS # 0.3 10^3/ul (0.0-0.5); EOSINOPHILS % 3.3 % (0.0-7.0); HEMATOCRIT 32.4 % (37.0-47.0); HEMOGLOBIN 10.2 g/dl (12.0-16.0); LYMPHOCYTES # 2.8 10^3/ul (0.8-2.9); LYMPHOCYTES % 32.9 % (15.0-51.0); MEAN CORPUSCULAR HEMOGLOBIN 25.4 pg (29.0-33.0); MEAN CORPUSCULAR HGB CONC 31.5 g/dl (32.0-37.0); MEAN CORPUSCULAR VOLUME 80.6 fl (82.0-101.0); MEAN PLATELET VOLUME 10.2 fl (7.4-10.4); MONOCYTE # 0.6 10^3/ul (0.3-0.9); MONOCYTES % 6.4 % (0.0-11.0); NEUTROPHIL # 4.9 10^3/ul (1.6-7.5); PLATELET COUNT 260 10^3/UL (140-415); RED BLOOD COUNT 4.02 10^6/ul (4.20-5.40); RED CELL DISTRIBUTION WIDTH 16.5 % (11.5-14.5)
[2018-04-29 06:19] LABS: WHITE BLOOD COUNT 8.6 10^3/ul (4.8-10.8)
[2018-04-29 06:51] LABS: ALANINE AMINOTRANSFERASE 180 IU/L (13-69); ALBUMIN 3.3 g/dl (3.3-4.9); ALBUMIN/GLOBULIN RATIO 1.03; ALKALINE PHOSPHATASE 109 IU/L (42-121); ANION GAP 10 (5-13); ASPARTATE AMINO TRANSFERASE 94 IU/L (15-46); BILIRUBIN,INDIRECT 0.6 mg/dl (0-1.1); BILIRUBIN,TOTAL 0.6 mg/dl (0.2-1.3); BLOOD UREA NITROGEN 5 mg/dl (7-20); CALCIUM 8.2 mg/dl (8.4-10.2); CARBON DIOXIDE 25 mmol/L (21-31); CHLORIDE 109 mmol/L (97-110); CREATININE 0.39 mg/dl (0.44-1.00); Estimated GFR > 60 mL/min (>60); GLUCOSE 90 mg/dl (70-220); POTASSIUM 3.6 mmol/L (3.5-5.1); SODIUM 144 mmol/L (135-144); TOTAL PROTEIN 6.5 g/dl (6.1-8.1)
[2018-04-29 07:32] LABS: LIPASE 7326 U/L (23-300)
[2018-04-29] MEDS: HYDROmorphONE 1 MG/ML SYG IV ×2 (11:31→15:49)
[2018-04-30] MEDS: SOD CHLORIDE 0.9% 1,000 ML IV ×6 (00:15→22:30)
[2018-04-30 06:14] LABS: WHITE BLOOD COUNT 7.5 10^3/ul (4.8-10.8)
[2018-04-30 06:14] LABS: ADD MAN DIFF? NO; BASOPHILS % 0.4 % (0.0-2.0); EOSINOPHILS # 0.3 10^3/ul (0.0-0.5); EOSINOPHILS % 4.1 % (0.0-7.0); HEMATOCRIT 31.8 % (37.0-47.0); HEMOGLOBIN 10.1 g/dl (12.0-16.0); LYMPHOCYTES # 2.4 10^3/ul (0.8-2.9); LYMPHOCYTES % 32.2 % (15.0-51.0); MEAN CORPUSCULAR HEMOGLOBIN 25.5 pg (29.0-33.0); MEAN CORPUSCULAR HGB CONC 31.8 g/dl (32.0-37.0); MEAN CORPUSCULAR VOLUME 80.3 fl (82.0-101.0); MEAN PLATELET VOLUME 10.3 fl (7.4-10.4); MONOCYTE # 0.5 10^3/ul (0.3-0.9); MONOCYTES % 6.7 % (0.0-11.0); NEUTROPHIL # 4.2 10^3/ul (1.6-7.5); NEUTROPHILS % 56.3 % (39.0-77.0); PLATELET COUNT 259 10^3/UL (140-415); RED BLOOD COUNT 3.96 10^6/ul (4.20-5.40); RED CELL DISTRIBUTION WIDTH 15.9 % (11.5-14.5)
[2018-04-30 06:34] LABS: INR 1.03; PROTIME 13.6 Sec (11.9-14.9); PT RATIO 1.1
[2018-04-30 06:35] LABS: PHOSPHORUS 3.9 mg/dl (2.5-4.9)
[2018-04-30 06:35] LABS: MAGNESIUM 1.8 mg/dl (1.7-2.5); PARTIAL THROMBOPLASTIN TIME 27.5 Sec (23.0-35.0)
[2018-04-30 06:38] LABS: ALANINE AMINOTRANSFERASE 123 IU/L (13-69); ALBUMIN 3.6 g/dl (3.3-4.9); ALKALINE PHOSPHATASE 96 IU/L (42-121); AMYLASE 276 U/L (11-123); ANION GAP 10 (5-13); ASPARTATE AMINO TRANSFERASE 48 IU/L (15-46); BILIRUBIN,INDIRECT 0.5 mg/dl (0-1.1); BILIRUBIN,TOTAL 0.5 mg/dl (0.2-1.3); BLOOD UREA NITROGEN 4 mg/dl (7-20); CALCIUM 8.3 mg/dl (8.4-10.2); CARBON DIOXIDE 22 mmol/L (21-31); CHLORIDE 109 mmol/L (97-110); CREATININE 0.31 mg/dl (0.44-1.00); Estimated GFR > 60 mL/min (>60); GLUCOSE 82 mg/dl (70-220); LIPASE 777 U/L (23-300); POTASSIUM 3.3 mmol/L (3.5-5.1); SODIUM 141 mmol/L (135-144); TOTAL PROTEIN 6.6 g/dl (6.1-8.1)
[2018-04-30] MEDS ORDERED: ROPIVACAINE 0.5 % 30 ML VIAL ×2 (07:00→07:17)
[2018-04-30] MEDS ORDERED: CEFAZOLIN 1 GM INJ ×2 (07:00→07:15)
[2018-04-30] MEDS ORDERED: ONDANSETRON 4 MG INJ (07:00)
[2018-04-30] MEDS ORDERED: FENTAnyl 50 MCG/ML VIAL (07:11)
[2018-04-30] MEDS ORDERED: MIDAZOLAM 1 MG/ML 2 ML INJ (07:13)
[2018-04-30] MEDS ORDERED: PROPOFOL 20 ML (07:13)
[2018-04-30] MEDS ORDERED: LIDOCAINE 2% (SDV) 5 ML INJ (07:13)
[2018-04-30] MEDS ORDERED: ROCURONIUM 50 MG INJ (07:13)
[2018-04-30] MEDS ORDERED: SUCCINYLCHOLINE CHLORIDE 100 MG/5 ML SYG IV (07:13)
[2018-04-30] MEDS ORDERED: METOCLOPRAMIDE 10 MG INJ (07:13)
[2018-04-30] MEDS ORDERED: MEPERIDINE 25 MG INJ IV (07:30)
[2018-04-30] MEDS ORDERED: KETOROLAC 30 MG INJ IV (07:30)
[2018-04-30] MEDS ORDERED: DIPHENHYDRAMINE 50 MG INJ IV (07:30)
[2018-04-30] MEDS ORDERED: LEVALBUTEROL (NEB) 1.25 MG/0.5 ML AMP HHN (07:30)
[2018-04-30] MEDS ORDERED: ONDANSETRON 4 MG INJ IV ×2 (07:30→08:30)
[2018-04-30] MEDS ORDERED: LABETALOL HCL 20MG INJ IV (07:30)
[2018-04-30] MEDS ORDERED: FENTAnyl 50 MCG/ML VIAL IV ×2 (07:30)
[2018-04-30] MEDS ORDERED: HYDROmorphONE 1 MG/5 ML IV SYRINGE IV ×3 (07:30)
[2018-04-30] MEDS ORDERED: hydrALAzine 20 MG INJ IV (07:30)
[2018-04-30] MEDS ORDERED: METOPROLOL 5 MG INJ (07:53)
[2018-04-30] MEDS: BUPIVACAINE 0.25%/EPI (MDV) 50 ML VIAL INJ (08:01)
[2018-04-30] MEDS ORDERED: SUGAMMADEX SODIUM 200 MG/2 ML VIAL IV (08:29)
[2018-04-30] MEDS ORDERED: morphine 2 MG INJ IV (08:30)
[2018-04-30] MEDS ORDERED: OXYCODONE/ACETAMINOPHEN (5/325) TAB PO (08:30)
[2018-04-30] MEDS: HYDROmorphONE 1 MG/ML SYG IV ×2 (09:51→21:45)
[2018-04-30] MEDS: OXYCODONE/ACETAMINOPHEN (5/325) TAB PO ×2 (11:57→20:56)
[2018-04-30] MEDS: POTASSIUM CHLORIDE (SR) 20 MEQ TAB PO (12:53)
[2018-05-01] MEDS: SOD CHLORIDE 0.9% 1,000 ML IV (00:52)
[2018-05-01 06:25] LABS: ADD MAN DIFF? NO
[2018-05-01 06:31] LABS: WHITE BLOOD COUNT 8.2 10^3/ul (4.8-10.8)
[2018-05-01 06:31] LABS: BASOPHILS % 0.4 % (0.0-2.0); EOSINOPHILS # 0.3 10^3/ul (0.0-0.5); EOSINOPHILS % 3.6 % (0.0-7.0); HEMATOCRIT 33.3 % (37.0-47.0); HEMOGLOBIN 10.5 g/dl (12.0-16.0); LYMPHOCYTES # 2.5 10^3/ul (0.8-2.9); LYMPHOCYTES % 30.2 % (15.0-51.0); MEAN CORPUSCULAR HEMOGLOBIN 25.3 pg (29.0-33.0); MEAN CORPUSCULAR HGB CONC 31.5 g/dl (32.0-37.0); MEAN CORPUSCULAR VOLUME 80.2 fl (82.0-101.0); MEAN PLATELET VOLUME 10.3 fl (7.4-10.4); MONOCYTE # 0.6 10^3/ul (0.3-0.9); MONOCYTES % 7.2 % (0.0-11.0); NEUTROPHIL # 4.8 10^3/ul (1.6-7.5); NEUTROPHILS % 58.2 % (39.0-77.0); PLATELET COUNT 269 10^3/UL (140-415); RED BLOOD COUNT 4.15 10^6/ul (4.20-5.40); RED CELL DISTRIBUTION WIDTH 16.1 % (11.5-14.5)
[2018-05-01 07:01] LABS: MAGNESIUM 1.7 mg/dl (1.7-2.5)
[2018-05-01 07:01] LABS: PHOSPHORUS 4.2 mg/dl (2.5-4.9)
[2018-05-01 07:03] LABS: ALANINE AMINOTRANSFERASE 138 IU/L (13-69); ALBUMIN 3.4 g/dl (3.3-4.9); ALBUMIN/GLOBULIN RATIO 1.25; ALKALINE PHOSPHATASE 89 IU/L (42-121); AMYLASE 57 U/L (11-123); ANION GAP 10 (5-13); ASPARTATE AMINO TRANSFERASE 120 IU/L (15-46); BILIRUBIN,INDIRECT 0.3 mg/dl (0-1.1); BILIRUBIN,TOTAL 0.3 mg/dl (0.2-1.3); BLOOD UREA NITROGEN 6 mg/dl (7-20); CALCIUM 8.4 mg/dl (8.4-10.2); CARBON DIOXIDE 23 mmol/L (21-31); CHLORIDE 107 mmol/L (97-110); CREATININE 0.31 mg/dl (0.44-1.00); Estimated GFR > 60 mL/min (>60); GLUCOSE 86 mg/dl (70-220); LIPASE 245 U/L (23-300); POTASSIUM 3.6 mmol/L (3.5-5.1); SODIUM 140 mmol/L (135-144); TOTAL PROTEIN 6.1 g/dl (6.1-8.1)
== END 2018-05-01 13:40 | disposition home or self-care (01) | DRG 418 ==
LOC: FTE 21:19 → 5EC 04-28 00:49
PROC: 0FT44ZZ Resection of Gallbladder, Percutaneous Endoscopic Approach (ICD-10-PCS; principal; 2018-04-30 07:30)
DX: K85.10 Biliary acute pancreatitis without necrosis or infection (principal); K80.10 Calculus of gallbladder with chronic cholecystitis without obstruction; E66.9 Obesity, unspecified; Z68.33 Body mass index [BMI] 33.0-33.9, adult; K82.8 Other specified diseases of gallbladder; D50.9 Iron deficiency anemia, unspecified; E05.80 Other thyrotoxicosis without thyrotoxic crisis or storm
CPT/HCPCS: 74181; 76705; 80053; 80061; 81001; 81025; 82150; 82728; 83036; 83540; 83690; 83735; 84100; 84443; 85025; 85610; 85730; 88304

== ENCOUNTER 2019-02-05 06:53 | Emergency (ER) | payer MEDICAID ==
[2019-02-05 07:32] LABS: URINE BLOOD (Dip) POC 3+ (NEGATIVE); URINE GLUCOSE (Dip) POC Negative (NEGATIVE); URINE KETONES (Dip) POC Negative (NEGATIVE); URINE LEUKOCYTE EST (Dip) POC Negative (NEGATIVE); URINE NITRITE (Dip) POC Negative (NEGATIVE); URINE TOTAL PROTEIN POC 1+ (NEGATIVE)
[2019-02-05] MEDS: KETOROLAC 30 MG INJ IM (07:34)
== END 2019-02-05 09:18 | disposition home or self-care (01) ==
LOC: FTE 09:18
DX: N21.0 Calculus in bladder (principal); N20.0 Calculus of kidney
CPT/HCPCS: 74176; 76856; 81003; 81025; 96372; 99285-25